=== PATIENT | female | born 1995 | race Caucasian/White ===

== ENCOUNTER 2020-11-13 13:31 | Emergency (ER) | payer OTHER ==
[~2020-11-13] VITALS: Ht 182.9 cm; Wt 85.7 kg
[2020-11-13 14:37] VITALS: BP 130/75
== END 2020-11-13 14:37 | disposition home or self-care (01) ==
LOC: M.ERS 13:31
DX: J02.0 Streptococcal pharyngitis (principal); Z90.49 Acquired absence of other specified parts of digestive tract